=== PATIENT | female | born 1980 | race Hispanic/Latino ===

== ENCOUNTER 2017-10-28 21:16 | Outpatient (CLI) | payer MEDICAID ==
[2017-10-28] MEDS ORDERED: LACTATED RINGERS 500 ML IV ONE (21:45)
[2017-10-28 21:53] VITALS: BP 114/57
--- NOTE | 2017-10-28 23:01 | Event Note ---
Date: 10/28/17 She was evaluated inthe office today for routine OB visit according to her office note: NST CAT 1 but not reactive. She reports u/s done at [facility] yesterday normal and she reports normal movement. Tonight BPP 10/06. Will allow home with reactive NST. RN informed
[2017-10-28] MEDS ORDERED: LACTATED RINGERS 1,000 ML IV ONE (23:41)
--- NOTE | 2017-10-28 23:49 | Ultrasound Report ---
FINAL REPORT PROCEDURE: US OB LIMITED TECHNIQUE: Real-time limited sonographic examination was performed for evaluation of amniotic fluid volume for each fetus with image documentation (1 or more fetuses). CPT 65108 HISTORY: low heartrate in OB office COMPARISON: No prior studies are available for comparison. FINDINGS: There is a single intrauterine gestation with a heart rate of 157 beats per minute. Amniotic fluid index is 15.1 centimeters. IMPRESSION: Amniotic fluid index is 15.1 centimeters.
--- NOTE | 2017-10-28 23:50 | Ultrasound Report ---
FINAL REPORT PROCEDURE: US OB BPP WO NON-STRESS TECHNIQUE: Sonographic evaluation for breathing, movement, tone, and amniotic fluid volume was performed. CPT 55358 HISTORY: low heartrate in OB office COMPARISON: No prior studies are available for comparison. FINDINGS: A single intrauterine gestation is noted with a heart rate of 157 beats per minute. Amniotic fluid volume: Normal-score 2. At least one vertical pocket > 2 cm or more in vertical axis. breathing: Normal-score 2. movement: Normal-score 2. tone: Normal. Score: 8 of 8. IMPRESSION: Normal biophysical profile.
== END 2017-10-29 00:29 | disposition home or self-care (01) ==
LOC: TRG 21:16 → LD 21:33 → TRG 10-29 00:29
PROVIDERS: ATTEND Obstetrics & Gynecology
DX: O60.03 Preterm labor without delivery, third trimester (principal); Z3A.35 35 weeks gestation of pregnancy
CPT/HCPCS: 59025; 76815; 76819

== ENCOUNTER 2017-11-11 20:18 | Outpatient (CLI) | payer MEDICAID ==
[2017-11-11 20:42] VITALS: BP 114/61
== END 2017-11-11 21:24 | disposition home or self-care (01) ==
LOC: TRG 20:18
PROVIDERS: ATTEND Obstetrics & Gynecology
DX: O47.03 False labor before 37 completed weeks of gestation, third trimester (principal); Z3A.36 36 weeks gestation of pregnancy
CPT/HCPCS: 59025

== ENCOUNTER 2017-12-03 11:55 | Inpatient (IN) | payer MEDICAID ==
[2017-12-03] MEDS ORDERED: MINERAL OIL PO PRN (13:08)
[2017-12-03] MEDS ORDERED: ZOFRAN IV PRN (13:08)
[2017-12-03] MEDS ORDERED: SUBLIMAZE IV PRN (13:08)
[2017-12-03] MEDS ORDERED: BRETHINE SUB-Q PRN (13:08)
[2017-12-03] MEDS ORDERED: XYLOCAINE 2% INFILTRATI ONE (13:25)
--- NOTE | 2017-12-03 13:55 | History and Physical Report ---
History of Present Illness Date of examination: 12/03/17 Date of admission: 12/03/17 13:39 Chief complaint: decreased FM @ 39+6 weeks History of present illness: EDC Calculations LMP: 12/04/2018 Past History : 4 Term Births: 3 Living Children: 3 Para: 3 # 1 Delivery date: 1995 Weeks Gestation: FT labor: no Delivery type: Delivery location: [place] Infant Sex: Female weight: 6-8 # 2 Delivery date: 2007 Weeks Gestation: ft labor: no Delivery type: Delivery location: [facility] Infant Sex: Female weight: 7 # 3 Delivery date: 03/10/2013 Weeks Gestation: term labor: no Delivery type: Delivery location: [facility] Infant Sex: Male weight: 6lb 13oz Past Medical History: Reviewed history from 08/15/2012 and no changes required: Negative Past Medical History Past Surgical History: Reviewed history from 08/15/2012 and no changes required: Negative Past Surgical History Past Medical History Social Hx: Patient is no e/t/d Infection History Hx of STD: chlamydia HIV Risk Eval: low risk Hepatitis B Risk Eval: low risk Personal hx. of genital herpes: no Partner hx. of genital herpes: no Rash, Viral, or Febrile illness since last LMP? no Varicella/Chicken Pox Status: Immunized TB Risk: no Genetic History ADVANCED MATERNAL AGE Congenital Heart Defect: Mom: no Dad: no Astrid Disease: Mom: no Dad: no Thalassemia Mom: no Dad: no Neural Tube Defect Mom: no Dad: no Down's Syndrome Mom: no Dad: no Wil-Sachs Mom: no Dad: no Sickle Cell Disease/Trait Mom: no Dad: no Hemophilia Mom: no Dad: no Muscular Dystrophy Mom: no Dad: no Cystic Fibrosis Mom: no Dad: no [place] Chorea Mom: no Dad: no Mental Retardation Mom: no Dad: no Fragile X Mom: no Dad: no Other Genetic/Chromosomal Disorder Mom: no Dad: no Child w/other defect Mom: no Dad: no Enviromental Exposures Xray Exposure: no Medication, drug, or alcohol use since LMP: no Chemical/Other Exposure: no Exposure to Cat Liter: no Hx of Parvovirus (Fifth Disease): no Active Medications (reviewed today): AZITHROMYCIN 500 MG ORAL TABLET (AZITHROMYCIN) 2 tabs po at one time FLUCONAZOLE 150 MG ORAL TABLET (FLUCONAZOLE) 1 po METRONIDAZOLE 500 MG ORAL TABLET (METRONIDAZOLE) take all 4 pills at one time KARIVA 0.15-0.02/0.01 MG (19/07) ORAL TABLET (DESOGESTREL-ETHINYL ESTRADIOL) 1 po qd MIRENA () Current Allergies (reviewed today): * FISH (Critical) Past History Past Medical History: other (see HPI) Past Surgical History: other (see HPI) 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) Social history: no significant social history, - Obstetrical History Expected Date of Delivery: 12/04/17 Actual Gestation: 39 Week(s) 6 Day(s) : 4 Para: 3 Hx # Term Pregnancies: 3 Number of Pregnancies: 0 Spontaneous Abortions: 0 Number of Living Children: 3 Medications and Allergies Allergies Allergy/AdvReac Type Severity Reaction Status Date / Time Fish Containing Products AdvReac Shortness Unverified 03/10/13 06:11 of Breath fish derived AdvReac Shortness Unverified 03/10/13 06:11 of Breath Home Medications Medication Instructions Recorded Confirmed Last Taken Type Pnv with Ca,No.72/Iron/FA 1 tab PO DAILY 03/10/13 12/03/17 12/03/17 08:45 History [ Plus Tablet] Active Meds: Active Medications Ephedrine Sulfate (Ephedrine Sulfate) 10 mg IV Q2M PRN PRN Reason: Hypotension Fentanyl (Sublimaze) 100 mcg IV Q2H PRN PRN Reason: Labor Pain Lactated Ringer's (Lactated Ringers) 1,000 mls @ 125 mls/hr IV DIRECT ERLINDA Oxytocin/Sodium Chloride (Pitocin/Ns 20 Unit/1000ml Drip) 20 units in 1,000 mls @ 125 mls/hr IV DIRECT ERLINDA Oxytocin/Sodium Chloride (Pitocin/Ns 30 Unit/500ml) 30 units in 500 mls @ 4 mls /hr IV TITR ERLINDA; Protocol Mineral Oil (Mineral Oil) 30 ml PO QHS PRN PRN Reason: Constipation Ondansetron HCl (Zofran) 4 mg IV Q8H PRN PRN Reason: Nausea And Vomiting Terbutaline Sulfate (Brethine) 0.25 mg SUB-Q ONCE PRN PRN Reason: Hyperstimulation/Hypertonicity Review of Systems All systems: negative - Vital Signs Vital signs: Vital Signs Pulse BP 88 137/73 12/03/17 12:54 12/03/17 12:54 Temp Pulse Resp BP Pulse Ox 98.1 F 88 16 137/73 12/03/17 13:26 12/03/17 12:54 12/03/17 13:26 12/03/17 12:54 - Physical Exam Breasts: Positive: normal Cardiovascular: Regular rate Lungs: Positive: Clear to auscultation, Normal air movement Abdomen: Positive: normal appearance, soft Genitourinary (Female): Positive: normal external genitalia, normal perenium Vulva: both: normal Vagina: Positive: normal moisture Uterus: Positive: normal size, normal contour Anus/Rectum: Positive: normal perianal skin Extremities: Positive: normal Deep Tendon Reflex Grade: Normal +2 - Obstetrical FHR: auscultation normal, category 1 Uterine Contraction Monitor Mode: External Cervical Dilatation: 5 (IBOW, cephalic) Cervical Effacement Percentage: 80 station: -2 Uterine Contraction Pattern: Irregular Uterine Tone Measurement Phase: Contraction Uterine Contraction Intensity: Mild Results All other labs normal. Assessment and Plan 37y/o @ 39+6 weeks, presented to triage with decreased movement. patient has been followed by [facility] this d/t placental chorioangioma and advanced maternal age. Tracting CAT 1 but d/t risk factors and gestation, plan to admit and induce labor with pitocin. patient does not plan on an epidural. GBS negative. Admission orders in EMR., records on chart, Dr. Craft aware. 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
[2017-12-03] MEDS ORDERED: PITOCin/NS 20 UNIT/1000ML DRIP 20 UNITS/1,000 ML BAG IV SCH ×2 (14:00→23:10)
[2017-12-03] MEDS ORDERED: LACTATED RINGERS 1,000 ML IV SCH (14:00)
[2017-12-03 14:43] LABS: Hematocrit 33.3 % (30.3-42.9); Hemoglobin 11.3 gm/dl (10.1-14.3); Mean Corpuscular HGB Conc 34 % (30-34); Mean Corpuscular Hemoglobin 32 pg (28-32); Mean Corpuscular Volume 94 fl (79-97); Platelet Count 188 K/mm3 (140-440); Red Blood Count 3.56 M/mm3 (3.65-5.03); Red Cell Distribution Width 14.7 % (13.2-15.2)
[2017-12-03] MEDS: PITOCin/NS 30 UNIT/500ML 30 UNITS/500 ML BAG IV SCH ×3 (15:56→18:42)
--- NOTE | 2017-12-03 16:58 | Progress Note ---
Assessment and Plan Patient c/o feeling increased ctx, SVE unchanged. Pitocin @ 8 but not infusing - IV appears to have infiltrated. RN restarting then will continue to titrate for adequate labor. Discussed options for AROM - patient elects to have BOW broken. Clear fluid. Pt does not plan on epidural. Anticipate . 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 Current Visit: Yes Status: Acute Subjective - Subjective Date of service: 12/03/17 Principal diagnosis: IUP @ 39+6, Chorioangioma Interval history: EDC Calculations LMP: 12/04/2018 Past History : 4 Term Births: 3 Living Children: 3 Para: 3 # 1 Delivery date: 1997 Weeks Gestation: FT labor: no Delivery type: Delivery location: [place] Sex: Female weight: 6-8 # 2 Delivery date: 2008 Weeks Gestation: ft labor: no Delivery type: Delivery location: [facility] Infant Sex: Female weight: 7 # 3 Delivery date: 03/10/2013 Weeks Gestation: term labor: no Delivery type: Delivery location: [facility] Sex: Male weight: 6lb 13oz Past Medical History: Reviewed history from 08/15/2012 and no changes required: Negative Past Medical History Past Surgical History: Reviewed history from 08/15/2012 and no changes required: Negative Past Surgical History Past Medical History Social Hx: Patient is no e/t/d Infection History Hx of STD: chlamydia HIV Risk Eval: low risk Hepatitis B Risk Eval: low risk Personal hx. of genital herpes: no Partner hx. of genital herpes: no Rash, Viral, or Febrile illness since last LMP? no Varicella/Chicken Pox Status: Immunized TB Risk: no Genetic History ADVANCED MATERNAL AGE Congenital Heart Defect: Mom: no Dad: no Astrid Disease: Mom: no Dad: no Thalassemia Mom: no Dad: no Neural Tube Defect Mom: no Dad: no Down's Syndrome Mom: no Dad: no Wil-Sachs Mom: no Dad: no Sickle Cell Disease/Trait Mom: no Dad: no Hemophilia Mom: no Dad: no Muscular Dystrophy Mom: no Dad: no Cystic Fibrosis Mom: no Dad: no [place] Chorea Mom: no Dad: no Mental Retardation Mom: no Dad: no Fragile X Mom: no Dad: no Other Genetic/Chromosomal Disorder Mom: no Dad: no Child w/other defect Mom: no Dad: no Enviromental Exposures Xray Exposure: no Medication, drug, or alcohol use since LMP: no Chemical/Other Exposure: no Exposure to Cat Liter: no Hx of Parvovirus (Fifth Disease): no Active Medications (reviewed today): AZITHROMYCIN 500 MG ORAL TABLET (AZITHROMYCIN) 2 tabs po at one time FLUCONAZOLE 150 MG ORAL TABLET (FLUCONAZOLE) 1 po METRONIDAZOLE 500 MG ORAL TABLET (METRONIDAZOLE) take all 4 pills at one time KARIVA 0.15-0.02/0.01 MG (21/5) ORAL TABLET (DESOGESTREL-ETHINYL ESTRADIOL) 1 po qd MIRENA () Current Allergies (reviewed today): * FISH (Critical) Patient reports: movement normal, contractions Objective - Vital Signs Vital Signs: Vital Signs - 12hr 12/03/17 12/03/17 12/03/17 12:54 13:26 15:53 Temperature 98.1 F Pulse Rate 88 81 Respiratory 16 Rate Blood Pressure 137/73 118/60 Blood Pressure [Left] 12/03/17 15:59 Temperature 99.0 F Pulse Rate 81 Respiratory 18 Rate Blood Pressure Blood Pressure 118/60 [Left] - Exam Breasts: normal Cardiovascular: Regular rate Lungs: Clear to auscultation Abdomen: Present: normal appearance, soft Vulva: both: normal Uterus: Present: normal FHR: auscultation normal, category 1 Uterine Contraction Monitor Mode: External Cervical Dilatation: 5 (AROM - clear fluid) Cervical Effacement Percentage: 80 station: -1 Uterine Contraction Frequency (min): 4 Uterine Contraction Duration: 60 Uterine Contraction Pattern: Regular Uterine Tone Measurement Phase: Contraction Uterine Contraction Intensity: Mild Extremities: normal Deep Tendon Reflex Grade: Normal +2 - Labs Labs: Abnormal Labs 12/03/17 14:13 RBC 3.56 L Laboratory Results - last 24 hr 12/03/17 12/03/17 12/03/17 14:13 14:13 14:13 WBC 7.3 RBC 3.56 L Hgb 11.3 Hct 33.3 MCV 94 MCH 32 MCHC 34 RDW 14.7 Plt Count 188 RPR Nonreactive Blood Type B POSITIVE Antibody Screen Negative
--- NOTE | 2017-12-03 21:10 | Procedure Note ---
OB Delivery Note - Delivery Date of Delivery: 12/03/17 ( female) Director Of Operations: DOMINICK LAGUNAS Estimated blood loss: 200cc - Vaginal Delivery presentation: vertex Delivery position: OA Intrapartum events: none Delivery induction: oxytocin Delivery augmentation: rupture of membranes Delivery monitor: external FHT, external uterine Route of delivery: Delivery placenta: spontaneous Delivery cord: 3 umbilical vessels Episiotomy: none Delivery laceration: none Anesthesia: none Delivery comments: Female del over intact perineum, placed skin to skin on mother's abdomen. 3 vessel cord clamped and cut. Cord blood collected. Placenta del complete and intact - no chorioangioma noted in placenta during care - will send to pathology. Pit to IVF. EBL 200. wt 7#10oz, apgars 8/9. Mother and infant remain LDR stable. - Infant A at 1 minute: 8 at 5 minutes: 9 Gender: Female (7#10)
[2017-12-03] MEDS ORDERED: TUCKS PAD TP PRN (23:10)
[2017-12-03] MEDS ORDERED: SODIUM CHLORIDE FLUSH SYRINGE 10 ML IV NR (23:10)
[2017-12-03] MEDS ORDERED: PHENERGAN PO PRN (23:10)
[2017-12-03] MEDS ORDERED: NORCO 5/325 PO PRN (23:10)
[2017-12-03] MEDS ORDERED: BENADRYL PO PRN (23:10)
[2017-12-03] MEDS ORDERED: DERMOPLAST TP PRN (23:10)
[2017-12-03] MEDS ORDERED: LANSINOH TP PRN (23:10)
[2017-12-03] MEDS ORDERED: MILK OF MAGNESIA PO PRN (23:10)
[2017-12-03] MEDS ORDERED: DULCOLAX PR PRN (23:10)
[2017-12-03] MEDS ORDERED: TYLENOL PO PRN (23:10)
[2017-12-04] MEDS: MOTRIN PO SCH ×2 (06:00)
[2017-12-04] MEDS ORDERED: BOOSTRIX IM ONE (06:00)
--- NOTE | 2017-12-04 08:49 | Discharge Summary ---
Providers - Providers Date of Admission: 12/03/17 13:39 Date of discharge: 12/04/17 (pt desires d/c) Attending physician: ALVARO REYES 12/03/17 23:10 Consult to Mergers And Acquisitions Manager [CONS] Routine Reason For Exam: assistance with , SNS Primary care physician: ALVARO REYES Hospitalization Reason for admission: active labor Delivery: Episiotomy: none Laceration: none Incision: normal Other procedures: none complications: none Discharge diagnosis: IUP at term delivered baby: female Hospital course: uncomplicated vaginal delivery Pt OOB ambulating in room. Desires d/c today if baby can go @ 24hours VSS FF below umb Lochia small Perineum intact H&H pending. Doing well s/p vag delivery P: d/c today with instructions RTO 4 weeks PP care. Condition at discharge: Good Disposition: DC-01 TO HOME OR SELFCARE - Discharge Diagnoses (1) (normal spontaneous vaginal delivery) Status: Acute Comment: RTO 4 weeks PP care Plan - Provider Discharge Summary Activity: routine, no sex for 6 weeks, no heavy lifting 4 weeks, no strenuous exercise Diet: routine Instructions: routine Additional instructions: [] Smoking cessation referral if applicable(refer to patient education folder for contact #) [] Refer to [facility]'s [facility] Booklet Call your doctor immediately for: * Fever > 100.5 * Heavy vaginal bleeding ( >1 pad per hour) * Severe persistent headache * Shortness of breath * Reddened, hot, painful area to leg or breast * Drainage or odor from incision. * Keep incision clean and dry at all times and follow doctor's instructions regarding bathing/showering - Follow up plan Follow up: ALVARO REYES MD [Primary Care Provider] - 01/03/18 (Congratulations! Please call [phone] to schedule your visit in 4 weeks. Motrin for cramping and pain, Tylenol for headaches. Call with any concerns.)
[2017-12-04] MEDS ORDERED: PRENATAL VITAMIN PO SCH (10:00)
[2017-12-04 10:44] LABS: Hematocrit 34.8 % (30.3-42.9); Hemoglobin 11.8 gm/dl (10.1-14.3)
[2017-12-04 15:59] VITALS: BP 114/60
== END 2017-12-04 23:37 | disposition home or self-care (01) | DRG 775 ==
LOC: TRG 11:55 → LD 13:39 → OB 23:09
PROVIDERS: ADMIT Obstetrics & Gynecology; ATTEND Obstetrics & Gynecology
PROC: 10E0XZZ Delivery of Products of Conception, External Approach (ICD-10-PCS; principal; 2017-12-03)
PROC: 3E033VJ Introduction of Other Hormone into Peripheral Vein, Percutaneous Approach (ICD-10-PCS; principal; 2017-12-03)
DX: O36.8130 Decreased fetal movements, third trimester, not applicable or unspecified (principal); Z3A.39 39 weeks gestation of pregnancy; O41.1230 Chorioamnionitis, third trimester, not applicable or unspecified; Z37.0 Single live birth
CPT/HCPCS: 36415; 85014; 85018; 85027; 86592; 86850; 86900; 86901; 88307; A6250; J2590; J7120